=== PATIENT | female | born 1985 | race Caucasian/White ===

== ENCOUNTER 2024-02-01 17:49 | Emergency (ER) | payer OTHER ==
[~2024-02-01] VITALS: Ht 160 cm; Wt 78.0 kg
[2024-02-01] MEDS ORDERED: diphenhydrAMINE HCL 50 MG/ML VIAL ONE (20:16)
[2024-02-01] MEDS ORDERED: METOCLOPRAMIDE HCL 10 MG/2 ML VIAL ONE (20:16)
[2024-02-01] MEDS: diphenhydrAMINE HCL 50 MG/ML VIAL IV ONE (20:26)
[2024-02-01] MEDS: IV NS 0.9% 1,000 ML BAG IV ONE (20:26)
[2024-02-01] MEDS: METOCLOPRAMIDE HCL 10 MG/2 ML VIAL IV ONE (20:26)
[2024-02-01 21:29] LABS: PREGNANCY TEST URINE QUAL NEGATIVE (NEGATIVE)
[2024-02-01] MEDS ORDERED: KETOROLAC TROMETHAMINE 15 MG/ML VIAL ONE (21:55)
[2024-02-01] MEDS: KETOROLAC TROMETHAMINE 15 MG/ML VIAL IV ONE (21:59)
[2024-02-01 23:07] VITALS: BP 143/90; TEMP 97.8; O2SAT 100
== END 2024-02-01 23:07 | disposition home or self-care (01) ==
LOC: ER 17:56
DX: G43.909 Migraine, unspecified, not intractable, without status migrainosus (principal); R11.2 Nausea with vomiting, unspecified; E03.9 Hypothyroidism, unspecified
CPT/HCPCS: 99284; 96374; 96375; 96361; 84703; J1200; J2765; J7030; J1885